=== PATIENT | female | born 1960 | race Caucasian/White ===

== ENCOUNTER 2018-08-25 09:49 | Day surgery (SDC) | payer MEDICARE ==
[~2018-08-25] VITALS: Ht 152.4 cm; Wt 98.6 kg
[2018-08-25] VITALS (13 sets, daily range): BP systolic 107–151; BP diastolic 43–88; PULSE 60–64; TEMP 97.7
[~2018-08-25 09:49] MED LIST: 00186-0372-20 IH; ACID REDUCER200 MG PO; ALLI60 MG PO; ASPIRIN 32325 MG/TA1 PO; ASPIRIN 32325 MG/TAB PO; COREG 25MG25 MG/TAB PO; CRESTOR40 MG PO; GLUCOPHAGE500 MG/TAB PO; GREEN COFFEE BEAN PO; LIPITOR 80MG80 MG PO; MAREPA1200 MG PO; MOBIC 7.5MG7.5 MG PO; MULTIPLE VITAMI1 TAB PO; PRINIVIL20 MG PO; RT SPIRIVA18 MCG IH; ULTRAM 50MG TAB50 MG PO; ZANTAC 150MG T150 MG PO; [UNRECOGNIZED DRUG - OTHER] PO; [UNRECOGNIZED DRUG - OTHER] PO
[2018-08-25 10:54] LABS: HEMATOCRIT 38.8 % (37.0-47.0); HEMOGLOBIN 12.9 g/dl (12.5-16.0); MEAN CELL VOLUME 92 fl (80.0-100.0); MEAN CORPUSCULAR HEMOGLOBIN 31 pg (27.0-31.0); MEAN CORPUSCULAR HGB CONC 33 g/dl (33.0-37.0); MEAN PLATELET VOLUME 12.1 fl (7.4-10.4); PLATELET COUNT 183 K/mm3 (130-400); RED BLOOD COUNT 4.22 M/mm3 (4.10-5.30); REDCELL DISTRIBUTION WIDTH-CV 15.8 % (11.5-14.5)
[2018-08-25] MEDS ORDERED: LEXAPRO20 MG PO (10:58)
[2018-08-25] MEDS ORDERED: NEURONTIN300 MG/CAP PO (10:58)
[2018-08-25 10:59] LABS: CALCIUM 9.4 mg/dL (8.4-10.2); CREATININE, serum 0.77 mg/dL (0.52-1.25); POTASSIUM 4.2 mmol/L (3.4-5.0)
[2018-08-25] MEDS ORDERED: SPIRIVA RE2.5 MCG/Ac IH (10:59)
[2018-08-25 11:00] LABS: PROTHROMBIN TIME 11.1 SECONDS (9.7-12.8)
[2018-08-25] MEDS ORDERED: 00186-0370-20 IH (11:00)
[2018-08-25] MEDS ORDERED: PRIL40 PO (11:00)
--- NOTE | 2018-08-25 14:09 | NUR ---
ALL SEDATION MEDICATIONS WILL BE GIVEN DURING PROCEDURE WITH VERBAL ORDER FROM MD KELLER. SEE MERGE FOR ADMIN TIMES.
--- NOTE | 2018-08-25 15:40 | NUR ---
PT TO ROOM 11 POST HEART CATHETERIZATION. VSS AND AX0X3. PULSES PRESENT AND READILY PALPABLE.RIGHT FEMORAL SITE IS C/D/I WITH FEMSTOP PRESENT. PT VERBALIZES PAIN 8/10 ON NUMERIC SCALE AND STATES A PRESSURE PAIN IN MIDDLE OF THIGH. LEG WARM TO THE TOUCH. PER MD, OKAY TO GIVE PAIN MEDICATION AND REASSESS IN 30 MINUTES. WILL CONTINUE TO MONITOR.
--- NOTE | 2018-08-25 17:26 | NUR ---
PT VSS AND PAIN STILL 9/10 IN RIGHT FEMORAL AREA POST HEART CATH. NO BLEEDING PRESENT AT FEMORAL SITE. PRESSURE IN FEM STOP REDUCED AND PT VERBALIZED IMMEDIATE RELIEF. PAIN NOW A 0/10 PER PT. PER MD, OK TO LEAVE AT REDUCED PRESSURE AND MONITOR.
--- NOTE | 2018-08-25 19:40 | NUR ---
PT VSS AND AX0X3 POST CARDIAC CATH. FEM-STOP REMOVED WITHOUT DIFFICULTY AND TEGADERM WITH GAUZE APPLIED. TOLERATING FOOD AND FLUID PO. TRANSFER REPORT GIVEN TO ROMAIN REAVES TO CONTINUE OUT PT BEDREST UNTIL 2139. PT TRANSFERRED TO [facility] WITH AND BELONGINGS AT SIDE.
--- NOTE | 2018-08-25 21:00 | NUR ---
PT HAS REMAINED AT BEDREST WITHOUT ISSUE. DRESSING REMAINS DRY AND INTACT. NO C/O PAIN OR DISCOMFORT. VITALS REMAIN WNL.
--- NOTE | 2018-08-25 21:50 | NUR ---
PT STAYED SUPINE AT BEDREST UNTIL 2144. PT WAS ASSISTED UP FROM BED, DRESSING REMAINED DRY AND INTACT. NO C/O PAIN OR NO ABNORMAL FEELING IN LEG. PT CHANGED INTO STREET CLOTHES AND IV REMOVED. EDUCATION AND PAPERWORK PROVIDED, AND SIGNATURES OBTAINED. PT WAS ESCORTED OUT OF FACILITY BY THIS NURSE.
== END 2018-08-25 23:00 | disposition home or self-care (01) ==
LOC: COL.CAR 09:49
PROVIDERS: Internal Medicine Cardiovascular Disease
DX: I25.10 Atherosclerotic heart disease of native coronary artery without angina pectoris (principal); R94.39 Abnormal result of other cardiovascular function study; I25.5 Ischemic cardiomyopathy; I34.0 Nonrheumatic mitral (valve) insufficiency; G47.30 Sleep apnea, unspecified; Z95.810 Presence of automatic (implantable) cardiac defibrillator; Z88.8 Allergy status to other drugs, medicaments and biological substances
CPT/HCPCS: C1760; C1769; C1894; J1644; J2250; J3010; Q9967

== ENCOUNTER 2019-04-03 08:33 | Day surgery (SDC) | payer MEDICARE ==
[~2019-04-03] VITALS: Ht 154.9 cm; Wt 98.5 kg
[2019-04-03] VITALS (8 sets, daily range): BP systolic 104–119; BP diastolic 43–67; PULSE 62–74; TEMP 97.4–98.2
[~2019-04-03 08:33] MED LIST changes: +00186-0370-20 IH; +LEXAPRO20 MG PO; +NEURONTIN300 MG/CAP PO; +PRIL40 PO; +SPIRIVA RE2.5 MCG/Ac IH
[2019-04-03] MEDS ORDERED: PROAIR HFA0.09 MG/AC IH (10:24)
[2019-04-03] MEDS ORDERED: NORCO 325 MG-51 TAB PO (11:27)
--- NOTE | 2019-04-03 12:00 | NUR ---
Patient returns to room 6 per cart from PACU and arouses to verbal stimuli. Bandaids x3 on abdomen dry and intact. Temp 97.0. IV fluids infusing LH at TKO. Siderails up x2 and call light in reach. David in room. Allowed to rest.
--- NOTE | 2019-04-03 12:15 | NUR ---
Resting with eyes closed. Offers no complaints of pain or nausea.
--- NOTE | 2019-04-03 12:30 | NUR ---
Continues to rest without complaints of pain or nausea.
--- NOTE | 2019-04-03 12:45 | NUR ---
Asking for juice and water. Sipping on cranberry juice and water. Denies pain or nausea.
--- NOTE | 2019-04-03 13:00 | NUR ---
Eating applesauce. Friend in room.
--- NOTE | 2019-04-03 13:30 | NUR ---
Continues to deny pain or nausea. Oxygen removed and sats remain 99%.
--- NOTE | 2019-04-03 13:59 | NUR ---
Mcrae 5mg one tab given for complaints of incisional pain. States that she is wanting to get up to the bathroom and walk. Assisted up to the bathroom and is able to void and returns to room. Able to dress self.
--- NOTE | 2019-04-03 14:05 | NUR ---
IV discontinued and site is free of redness. States that the pain pill is beginnging to help.
--- NOTE | 2019-04-03 14:18 | NUR ---
Given dismissal instructions and voices understanding of these. Provided script for Morris and instructed to wear oxygen today at home while recovering.
--- NOTE | 2019-04-03 14:30 | NUR ---
Patient dismissed to home driven by friend per private vehicle and taken to the front door per wheelchair by Yadira VILLALTA and assisted into vehicle with instructions in hand.
== END 2019-04-03 14:30 | disposition home or self-care (01) ==
LOC: SDCO 08:33
DX: K81.1 Chronic cholecystitis (principal); I25.2 Old myocardial infarction; I10 Essential (primary) hypertension; Z79.82 Long term (current) use of aspirin; J44.9 Chronic obstructive pulmonary disease, unspecified; K21.9 Gastro-esophageal reflux disease without esophagitis; G47.30 Sleep apnea, unspecified; Z79.899 Other long term (current) drug therapy; Z80.1 Family history of malignant neoplasm of trachea, bronchus and lung; F17.210 Nicotine dependence, cigarettes, uncomplicated; Z95.5 Presence of coronary angioplasty implant and graft; Z90.49 Acquired absence of other specified parts of digestive tract; Z95.0 Presence of cardiac pacemaker; E11.9 Type 2 diabetes mellitus without complications; Z79.84 Long term (current) use of oral hypoglycemic drugs; E66.01 Morbid (severe) obesity due to excess calories; Z68.41 Body mass index [BMI] 40.0-44.9, adult; E78.00 Pure hypercholesterolemia, unspecified
CPT/HCPCS: J0330; J1100; J2405; J2704; J3010; J7120

== ENCOUNTER 2020-07-18 10:20 | Day surgery (SDC) | payer MEDICARE ==
[~2020-07-18] VITALS: Ht 154.9 cm; Wt 103.5 kg
[2020-07-18] VITALS (11 sets, daily range): BP systolic 100–129; BP diastolic 36–72; PULSE 18–73; TEMP 97.7
[~2020-07-18 10:20] MED LIST changes: -ASPIRIN 32325 MG/TAB PO; +ASPIRIN E.C. 8181 MG PO; +NORCO 325 MG-51 TAB PO; +PROAIR HFA0.09 MG/AC IH
--- NOTE | 2020-07-18 11:12 | NUR ---
Initial visit; Patient thanked [employer] Teller for visit and for offering encouragement and prayer prior to her surgical procedure.
[2020-07-18] MEDS ORDERED: PLETAL50 MG PO (11:18)
[2020-07-18] MEDS ORDERED: MINIPRESS2 MG PO (11:19)
[2020-07-18 12:05] LABS: INR 0.9 (0.8-3.0); PROTHROMBIN TIME 10.5 SECONDS (9.7-12.8)
[2020-07-18 12:07] LABS: PARTIAL THROMBOPLASTIN TIME 30.5 SECONDS (26.0-37.0)
[2020-07-18 12:09] LABS: CALCIUM 9.4 mg/dL (8.4-10.2); CREATININE, serum 0.82 (0.52-1.25); POTASSIUM 4.3 mmol/L (3.4-5.0)
[2020-07-18 12:12] LABS: HEMATOCRIT 37.6 % (37.0-47.0); HEMOGLOBIN 12.2 g/dl (12.5-16.0); MEAN CELL VOLUME 95 fl (80.0-100.0); MEAN CORPUSCULAR HEMOGLOBIN 31 pg (27.0-31.0); MEAN CORPUSCULAR HGB CONC 32 g/dl (33.0-37.0); MEAN PLATELET VOLUME 12.5 fl (7.4-10.4); PLATELET COUNT 189 K/mm3 (130-400); RED BLOOD COUNT 3.98 M/mm3 (4.10-5.30); REDCELL DISTRIBUTION WIDTH-CV 14.8 % (11.5-14.5)
--- NOTE | 2020-07-18 13:30 | NUR ---
Report was recieved from Adin REAVES. 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 call light in reach, lunch ordered. pt updated on poc. no concerns at this time.
--- NOTE | 2020-07-18 15:30 | NUR ---
REMOVED 2 CC AIR AND THERE WAS SOME BLEEDING RIGHT AWAY, 2 CC AIR REINSTILLED INTO BAND ACHEIVING HEMOSTASI, WITH PLAN TO WAIT AN ADDITIONAL 30 MIN BEFORE DEFLATING BAND.
--- NOTE | 2020-07-18 18:00 | NUR ---
Pt is ready to go home. TR band was deflated with no problem, site dressed with bandaid, folded 2x2 and coban, cms intact distal. PT has been ambulatory with no problem. I reviewed dc, rx and fu instructions with patient. PT verbalized understanding. IV was dc'd with cath intact, dressing applied. To exit via wheelchair.
== END 2020-07-18 18:00 | disposition home or self-care (01) ==
LOC: COL.CAR 10:20
PROVIDERS: Internal Medicine Interventional Cardiology
DX: I25.119 Atherosclerotic heart disease of native coronary artery with unspecified angina pectoris (principal); R53.83 Other fatigue; E78.5 Hyperlipidemia, unspecified; J44.9 Chronic obstructive pulmonary disease, unspecified; I27.20 Pulmonary hypertension, unspecified; I10 Essential (primary) hypertension; I73.9 Peripheral vascular disease, unspecified; Z79.82 Long term (current) use of aspirin; Z88.8 Allergy status to other drugs, medicaments and biological substances; Z79.84 Long term (current) use of oral hypoglycemic drugs
CPT/HCPCS: J1644; J2250; J3010; Q9967

== ENCOUNTER → 2023-04-20 | Outpatient (CLI) | payer MEDICARE ==
[~2023-04-20] MED LIST changes: +MINIPRESS2 MG PO; +PLETAL50 MG PO
== END ==
LOC: CANSCHCLI → COL.RAD 09:14
DX: Z12.2 Encounter for screening for malignant neoplasm of respiratory organs (principal); F17.210 Nicotine dependence, cigarettes, uncomplicated